=== PATIENT | female | born 1975 | race Two or more races ===

== ENCOUNTER 2016-12-23 06:54 | Day surgery (SDC) | payer BC ==
--- NOTE | 2016-12-22 18:38 | HP ---
HAYLEE ARNETT [id number] DATE OF : 1975 HISTORY OF PRESENT ILLNESS: This is a 41-year-old female who was referred for heavy and frequent menses associated with pain and lasting six months. She had an ultrasound that showed an 8 cm leiomyoma and a total uterine size of 14 x 7 x 10 cm. The patient is interested in future conception. She did have an endometrial biopsy which showed a secretory endometrium. Following this, management of fibroid was discussed in detail, including an IUD, Depo-Provera injections and/or myomectomy. The patient is also having pelvic pain and would like a myomectomy. OB HISTORY: G-2, P-2, 0-0-2. Two vaginal deliveries. 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 STDs negative. She has had a normal Pap and mammogram. PAST MEDICAL HISTORY: Positive for hypothyroidism. PAST SURGICAL HISTORY: Cholecystectomy. MEDICATIONS: Include: 1. Levothyroxine 50 mcg. 2. Vitamins. 3. Iron supplementation. 4. Vitamin D. ALLERGIES: Negative. SOCIAL HISTORY: Nonsmoker. Occasional alcohol use. FAMILY HISTORY: Negative. REVIEW OF SYSTEMS: Noncontributory, with the exception of what was already mentioned. PHYSICAL EXAMINATION: GENERAL: A healthy female in no acute distress. HEENT: Normal. NECK: Supple. Thyroid not palpable. BREASTS: Soft. No masses. HEART: Regular sinus rhythm. No murmurs. LUNGS: Clear. ABDOMEN: Benign. PELVIC: External genitalia healthy. Vagina healthy. Cervix pink and nontender. Uterus 14-16 week size and anteverted. Adnexa negative. IMPRESSION: She has a history of menometrorrhagia, which is now resolved, and leiomyoma uteri. PLAN: A myomectomy. The risks, reasons, complications, living will and alternatives were discussed, failure of surgery to relieve symptoms discussed and transfusions discussed, all in [place]ian. The consultation lasted more than 30 minutes, with in the room.
[~2016-12-23 06:54] MED LIST: CEFAZOLIN SODIUM 2 GRAM PREMIX 100 ML IV ONE; IV START KIT ONE; LACTATED RINGERS 1,000 ML ONE
[2016-12-23] MEDS ORDERED: LIDOCAINE 1% 2 ML VIAL ID PRN (07:00)
[2016-12-23] MEDS ORDERED: CEFAZOLIN SODIUM 2 GRAM DUPLEX 2 G in Premix (D5W) 50 ml 1 EACH IV PRN (07:00)
[2016-12-23] MEDS ORDERED: LACTATED RINGERS 1,000 ML IV SCH ×2 (07:00→10:15)
[2016-12-23] MEDS ORDERED: VASOPRESSIN 20 UNITS/ML VIAL ONE (08:10)
[2016-12-23] MEDS ORDERED: MORPHINE SULFATE (DURAMORPH) 1 MG/ML 10ML AMP ONE (08:51)
[2016-12-23] MEDS ORDERED: MIDAZOLAM HCL 5 MG/5 ML VIAL ONE ×2 (08:51→10:57)
[2016-12-23] MEDS ORDERED: SPINAL PROCEDURAL TRAY 1 EACH ONE (08:51)
[2016-12-23] MEDS ORDERED: BUPIVACAINE 0.75% SPINAL AMPUL 2 ML ONE (09:54)
[2016-12-23] MEDS ORDERED: METOCLOPRAMIDE HCL 5 MG/ML 2ML VIAL ONE (09:54)
[2016-12-23] MEDS ORDERED: DIPHENHYDRAMINE HCL 50 MG/1 ML VIAL ONE (09:54)
[2016-12-23] MEDS ORDERED: ONDANSETRON 4 MG/2ML 2 ML VIAL IV PRN (10:03)
[2016-12-23] MEDS ORDERED: MEPERIDINE 25 MG/ML SYRINGE IV PRN (10:03)
[2016-12-23] MEDS ORDERED: MORPHINE SULFATE 4 MG/ML SYRINGE IV PRN (10:03)
[2016-12-23] MEDS ORDERED: LABETALOL HCL 5 MG/ML 20ML VIAL IV PRN (10:03)
[2016-12-23] MEDS ORDERED: ATROPINE SULFATE 0.4 MG/1 ML VIAL IV PRN (10:03)
[2016-12-23] MEDS ORDERED: PROMETHAZINE HCL 25 MG/ML VIAL IM PRN (10:03)
[2016-12-23] MEDS ORDERED: NALOXONE HCL 0.4 MG/ML VIAL IV PRN ×2 (10:03→10:05)
[2016-12-23] MEDS ORDERED: OXYCODONE/ACETAMINOPHEN 5/325 MG TABLET PO PRN (10:05)
[2016-12-23] MEDS ORDERED: MORPHINE SULFATE 2 MG/ML SYRINGE IV PRN (10:05)
[2016-12-23] MEDS ORDERED: EPHEDRINE SULFATE 50 MG/ML 1ML VIAL IV PRN (10:05)
[2016-12-23] MEDS ORDERED: ONDANSETRON 4 MG/2ML 2 ML VIAL ONE (11:09)
--- NOTE | 2016-12-23 11:33 | PCMBPN ---
Brief Post Op Note: Date of Procedure: 12/23/16 Start Time: Preoperative Diagnosis: 1. leiomyoma uterii, pelvic pain Postoperative Diagnosis: 1. Same Procedure: laparotomy, multiple myomectomy Surgeon: Gera Hart Assist: dr madrid Anesthesia: ms larios, spinal Findings: both ovaries and tubes normal, uterus 14 weeks size with 3 leiomyomas Condition: stable Complications: none IV Fluids: mLs of LR Urine Output: mLs Estimated Blood Loss: 600 mLs Tourniquet Time: N/A Specimens: N/A Implants: Drains: N/A closure brent patient tolerated procedure well and was returned to recovery room in stable condition with solomon draining clear yellow urine.
--- NOTE | 2016-12-23 12:08 | OP ---
Fanny Munoz : 1975 [id number] NAME OF OPERATION: Exploratory laparotomy and multiple myomectomy. PREOPERATIVE DIAGNOSES: 1. Leiomyoma uteri. 2. Pelvic pain. POSTOPERATIVE DIAGNOSES: 1. Leiomyoma uteri. 2. Pelvic pain. ACCOUNT DEVELOPMENT MANAGER: Dr. Gera Banks. SOLAR FABRICATION TECHNICIAN: Dr. Worley. ANESTHESIA: Satinder, Spinal. DESCRIPTION OF PROCEDURE: Dictation begins with patient under spinal anesthesia. She was in the supine position. The abdomen was prepared with Chloraprep and draped in the usual manner for pfannenstiel incision. Abdi was draining clear yellow urine at the onset of the procedure. After a time out was performed a pfannenstiel incision was made with the knife. The subcutaneous tissue was then dissected down to the rectus abdominis fascia which was nicked with the knife and carried laterally with Ritter scissors. All bleeding points were clamped with Ciera's and bovied. The superior portion of the fascia was grasped with Abiola clamps, the median raphe divided with the Ritter scissors, and a similar procedure was performed on the lower end of the incision. The muscle was split in mid portion. The peritoneum identified, picked up with two Ciera clamps, divided with the Metzenbaum scissors, and stretched laterally. Findings included a 14 week size uterus with two subserosal fibroids noted and a intramural fibroid noted, the largest one being the intramural about 8 cm. Both ovaries and tubes appeared normal. The uterus was delivered through the incision and wrapped in a moist lap. A knife was a used to make a linear incision over the two subserosal fibroids and those were bluntly and sharply dissected away using a finger and Metzenbaum scissors, then the cavity defects were closed with 1 Chromic interrupted suture. Next, a vertical incision as made across the fundus of the uterus and the intramural fibroid was dissected in a similar manner using Metzenbaum scissors and finger and the fibroid was removed. The endometrial cavity was entered with removal of the fibroid. The endometrial cavity was first repaired using 1 Chromic interrupted suture and then the uterine defect where the fibroid was located was closed in three layers using 1 Chromic interrupted suture. At the end of closure there was complete hemostasis. The uterine size after repair was approximately 6 weeks size after repair. The uterus was then replaced back into the abdominal cavity and the peritoneum was irrigated with normal saline and suctioned away. There was complete hemostasis noted over the uterus and with sponge and instrument count reported as correct and complete hemostasis the rectus abdominis muscle was reapproximated with interrupted 3 interrupted sutures of 2-0 Chromic material. Next, the fascia was closed in right and left halves with 1 Vicryl material locking the first stitch and that was done in a continuous manner. Subcutaneous bleeding points were bovied prior to closure of skin and skin was closed with brent. Estimated blood loss 600 mL. The patient tolerated the procedure well and was returned to recovery room in stable condition with a Abdi draining clear yellow urine and she received 2 gm of Ancef preoperatively. FINAL DIAGNOSES: 1. Leiomyoma uteri 2. Pelvic. JOB: [id number]
[2016-12-23] MEDS ORDERED: ACETAMINOPHEN 325 MG TABLET PO PRN (12:30)
[2016-12-23] MEDS ORDERED: MAG HYDROX/AL HYDROX/SIMETH 30 ML UDCUP PO PRN (12:30)
[2016-12-23] MEDS ORDERED: BLISTEX LIPSTICK 1 EACH TP PRN (12:30)
[2016-12-23] MEDS ORDERED: MAGNESIUM HYDROXIDE/AL HYDROX 30 ML UDCUP PO PRN (12:30)
[2016-12-23] MEDS ORDERED: DOCUSATE SODIUM 100 MG CAPSULE PO PRN (12:30)
[2016-12-23] MEDS ORDERED: DIPHENHYDRAMINE HCL 25 MG CAPSULE PO PRN (12:30)
[2016-12-23] MEDS ORDERED: MENTHOL/CETYLPYRD 1 EACH LOZENGE PO PRN (12:30)
[2016-12-23] MEDS: ONDANSETRON 4 MG/2ML 2 ML VIAL IV PRN ×3 (12:50→22:39)
[2016-12-23] MEDS ORDERED: MORPHINE SULFATE 2 MG/ML SYRINGE IV ONE ×2 (14:36→16:02)
[2016-12-23 15:18] VITALS: BMI 29.9
[2016-12-23] MEDS ORDERED: PUMP TUBING ONE (16:22)
[2016-12-23] MEDS: LACTATED RINGERS 1,000 ML IV SCH (16:30)
[2016-12-23] MEDS: OXYCODONE/ACETAMINOPHEN 5/325 MG TABLET PO PRN ×2 (22:38→23:16)
[2016-12-23] MEDS: IBUPROFEN 800 MG TABLET PO PRN (22:39)
[2016-12-24] MEDS: LACTATED RINGERS 1,000 ML IV SCH ×4 (01:12→23:55)
[2016-12-24 06:34] LABS: HEMATOCRIT 25.8 % (37.0-47.0); HEMOGLOBIN 8.7 gm/l (12.0-16.0)
[2016-12-24] MEDS: OXYCODONE/ACETAMINOPHEN 5/325 MG TABLET PO PRN ×5 (07:41→21:45)
[2016-12-24] MEDS: LEVOTHYROXINE SODIUM 50 MCG TABLET PO SCH (07:41)
--- NOTE | 2016-12-24 12:04 | PDOC43 ---
- Subjective Subjective: Reports Pain Tolerable, Reports Tolerating PO Clear, Reports Other ( patient having mild pain, but feels tired since surgery, declined discharge), Denies Flatus, Denies Chest Pain, Denies Shortness of Breath, Denies Nausea, Denies Vomiting, Denies Fever, Denies Bowel Movement - Objective Vital Signs Temperature 98.0 F 12/24/16 11:42 Pulse Rate 96 12/24/16 11:42 Respiratory Rate 20 12/24/16 11:42 Blood Pressure 110/58 12/24/16 11:42 O2 Saturation by Pulse Oximetry 92 12/24/16 11:42 Oxygen Delivery Method Room Air Oxygen Flow Rate 0 Laboratory 12/24/16 05:10 Active Medication Orders Category Date Time Status Acetaminophen [Tylenol] Med 12/23/16 12:30 Active 325 - 650 mg PO Q4H PRN Diphenhydramine HCl [Benadryl] Med 12/23/16 12:30 Active 25 mg PO Q6H PRN Docusate Sodium [Colace] Med 12/23/16 12:30 Active 100 mg PO BID PRN Ibuprofen [Motrin] Med 12/23/16 22:34 Active 800 mg PO Q6H PRN Lactated Ringers 1,000 ml Med 12/23/16 16:03 Active IV 125 mls/hr Levothyroxine Sodium [Levothroid] Med 12/24/16 07:30 Active 50 mcg PO DAILY@0730 Lip Mason [Blistex] Med 12/23/16 12:30 Active 1 each TP PRN PRN Magnesium Hydroxide/Al Hydrox [Maalox] Med 12/23/16 12:30 Active 30 ml PO Q4H PRN Magnesium/Al Hydrox/Simeth [Maalox Plus] Med 12/23/16 12:30 Active 30 ml PO Q4H PRN Menthol/Cetylpyridinium [Cepacol] Med 12/23/16 12:30 Active 1 each PO PRN PRN Ondansetron 4 mg/2ml Vial [Zofran] Med 12/23/16 12:30 Active 4 mg IV Q4H PRN Oxycodone HCl/Acetaminophen [Percocet 5/325] Med 12/23/16 22:33 Active 1 - 2 tab PO Q4H PRN Sodium Chloride 0.9% Flush [Normal Saline 10ml Flush] Med 12/23/16 12:30 Active 10 - 50 ml IV PRN PRN Intake and Output 12/22/16 12/23/16 12/24/16 23:59 23:59 23:59 Intake Total 1035 350 Output Total 1500 450 Balance -465 -100 General: Afebrile, No Acute Distress Lungs: Clear to Auscultation Bilaterally, Normal Air Movement Abdomen: Soft, Non-Distended, Hypoactive Bowel Sounds, Other (no flatus passed yet or bowel movement), No Tenderness Wound DOMESTIC FREIGHT FORWARDER: Dressing in Place, Dressing Clean/Dry/Intact Genitourinary: Indwelling Urinary Cath, Other (vaginal pad with minimal bleeding noted) Extremities: No Tenderness - Disposition: Disposition: Stable - Additional Comments: d/c solomon, ambulate.
[2016-12-24] MEDS: IBUPROFEN 800 MG TABLET PO PRN ×2 (16:03→21:45)
[2016-12-25] MEDS: OXYCODONE/ACETAMINOPHEN 5/325 MG TABLET PO PRN (03:50)
[2016-12-25] MEDS: IBUPROFEN 800 MG TABLET PO PRN (03:50)
[2016-12-25] MEDS: LEVOTHYROXINE SODIUM 50 MCG TABLET PO SCH (07:29)
[2016-12-25] MEDS: LACTATED RINGERS 1,000 ML IV SCH (07:34)
[2016-12-25] MEDS: ONDANSETRON 4 MG/2ML 2 ML VIAL IV PRN (07:34)
[2016-12-25 07:49] VITALS: BP 108/58
--- NOTE | 2016-12-25 12:18 | PDOC5 ---
Hospital Course: ADMIT DATE: DISCHARGE DATE: 12/25/16 ADMISSION DIAGNOSES: leiomyoma uteri, anemia, pelvic pain, hypothyroidism PROCEDURES: multiple myomectomy HISTORY OF PRESENT ILLNESS: 41 year old presenting with history of anemia, pelvic pain and fibroid uterus, wants to maintain fertility HOSPITAL COURSE: The patient underwent a myomectomy and had an uneventful post operative course with exception of pre operative anemia, two episodes of nausea and vomiting, now resolved. By day of discharge the patient is ambulating, eating, voiding, and passing flatus without difficulty. Pain is controlled. 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: Dressing in Place, Dressing Clean/Dry/Intact, Well Approximated, [place] Intact, No Erythema, No Rash, No Edema Genitourinary: Normal Female Genitalia, Other (minimal vaginal bleeding, voiding without difficulty) Extremities: No Tenderness Skin: Normal Color, No Rash, No Erythema, No Induration Psych/Mental Status: Normal Affect, Normal Mood - Discharge Diagnosis (1) Leiomyoma of body of uterus Status: Acute (2) Anemia Qualifiers: Anemia type: iron deficiency Iron deficiency anemia type: chronic blood loss Qualifier Code: (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 Prescriptions: Ibuprofen [Motrin] 800 mg PO Q8H PRN #30 tablet PRN Reason: Pain FERROUS SULFATE (65 Fe) [IRON FERROUS SULFATE 325 MG TABLET (SHF)] 325 mg PO DAILY #30 tab Oxycodone HCl/Acetaminophen [PERCOCET 5/325 MG TABLET (SHF)] 1 - 2 tab PO Q4H PRN #14 tablet PRN Reason: Pain (Moderate)
--- NOTE | 2016-12-27 13:29 | SURGPATH ---
[facility] [address] [place] [id number] Patient Name: HAYLEE ARNETT I. MR#: [id number] : 1975 Gender: F Specimen #: [id number] Collected: 12/23/2016 Received: 12/26/2016 Reported: 12/27/2016 Submitting Phys: AUGUSTO BOONE I Copy To Phys: DAVID CULVER [facility] Clinical History / Pre-Operative Diagnosis: LEIOMYOMA UTERI Specimen Source / Surgical Procedure Performed: UTERINE FIBROIDS Interpretation: UTERINE FIBROIDS, MYOMECTOMY: - LEIOMYOMAS Electronically Signed Out [place] Grey M.D. Gross Description: The specimen is received in a formalin filled container labeled with the patient's name and "uterine fibroids". Two well circumscribed, rubbery lentz-sampson nodules are 2.5 x 2.0 x 1.5 cm and 6.5 x 6.5 x 5.7 cm and together 140 g. Each has a whorled, white-lentz cut surface. Summary of sections: A-section of smaller nodule [id number] of larger nodule Nicolas Amezquita Microscopic Description: Sections show well circumscribed nodules composed of interwoven fascicles of bland smooth muscle. No malignant features are present. 1: [id number] D25.1
== END 2016-12-25 13:47 | disposition home or self-care (01) ==
LOC: SDC 06:54 → MS 12:50 → SDC 12-25 13:47
PROVIDERS: ATTEND Obstetrics & Gynecology
PROC: 0UB94ZZ Excision of Uterus, Percutaneous Endoscopic Approach (ICD-10-PCS; principal; 2016-12-23)
DX: D25.9 Leiomyoma of uterus, unspecified (principal); E03.9 Hypothyroidism, unspecified; D50.0 Iron deficiency anemia secondary to blood loss (chronic); R11.2 Nausea with vomiting, unspecified
CPT/HCPCS: 85014; 85018; 36415; 58545; J1200; J2270; J2274; A9270 ×13; J2765; J2250 ×2; J2405 ×5; J7120 ×7; J0690